=== PATIENT | male | born 1990 | race Caucasian/White ===

== ENCOUNTER 2020-10-07 12:49 | Emergency (ER) | payer OTHER ==
[~2020-10-07] VITALS: Ht 190.5 cm; Wt 79.4 kg
[2020-10-07 14:00] LABS: BASOPHILS % (AUTO) 0.5 % (0.0-2.0); HEMATOCRIT 39 % (39-51); HEMOGLOBIN 12.7 g/dL (13.5-17.5); LYMPHOCYTES # (AUTO) 1.8 /CMM (0.8-4.8); LYMPHOCYTES % (AUTO) 23.2 % (20.0-44.0); MEAN CORPUSCULAR HGB CONC 32 g/dl (31.0-36.0); MEAN CORPUSCULAR VOLUME 90 fL (80-96); MONOCYTES # (AUTO) 0.6 /CMM (0.1-1.30); MONOCYTES % (AUTO) 7.6 % (2.0-12.0); NEUTROPHILS # (AUTO) 5.3 /CMM (1.8-8.9); NEUTROPHILS % (AUTO) 67.7 % (43.0-81.0); PLATELET COUNT (AUTO) 351 /CMM (150-450); RED BLOOD CELL COUNT(AUTO) 4.37 MIL/uL (4.5-6.0); WHITE BLOOD COUNT (AUTO) 7.8 K/uL (4.3-11.0)
[2020-10-07 14:13] LABS: CALCIUM, SERUM 9.1 mg/dL (8.5-10.1); CARBON DIOXIDE 32 mmol/L (21-32); CHLORIDE 104 mmol/L (98-107); CREATININE 0.8 mg/dL (0.6-1.3); GLUCOSE 89 mg/dL (74-106); POTASSIUM 4.3 mmol/L (3.5-5.1); SODIUM SERUM 142 mmol/L (136-145); UREA NITROGEN, BLOOD 12 mg/dL (7-18)
[2020-10-07 14:14] LABS: BILIRUBIN,URINE NEGATIVE (NEGATIVE); COLOR,URINE DARK YELLOW (YELLOW); LEUKOCYTE ESTERASE ,URINE NEGATIVE (NEGATIVE); NITRITE, URINE NEGATIVE (NEGATIVE); PH,URINE 8.5 (5.0-8.0); PROTEIN,URINE NEGATIVE (NEGATIVE); UGLUCOSE NEGATIVE (NEGATIVE)
--- NOTE | 2020-10-07 14:14 | NUR ---
rapid covid swab done and sent to lab
[2020-10-07 14:24] LABS: BACTERIA,URINE Rare /HPF (None Seen); RBC,URINE NONE SEEN /HPF (0-2); SQUAMOUS EPITHELIAL CELL,UR Rare /HPF (None Seen); WBC,URINE 0-2 /HPF (0-3)
[2020-10-07 14:27] LABS: ALANINE AMINOTRANSFERASE 46 U/L (12-78); ALBUMIN 3.2 g/dL (3.4-5.0); ALCOHOL, BLOOD < 3 mg/dL (0-0); ALKALINE PHOSPHATASE 64 U/L (46-116); ASPARTATE AMINOTRANSFERASE 28 U/L (15-37); BILIRUBIN,DIRECT 0.1 mg/dL (0.0-0.2); BILIRUBIN,TOTAL 0.2 mg/dL (0.2-1.0); TOTAL PROTEIN, SERUM 7.2 g/dL (6.4-8.2)
--- NOTE | 2020-10-07 19:27 | NUR ---
CLINICAL ADN FACESHEET FAXED TO [facility] INTAKE FOR VOLUNTARY PSYCH ADMISSION.
--- NOTE | 2020-10-07 20:42 | NUR ---
Call from [facility] Intake. Pt accepted to [facility] [address]. # for repor [phone]
--- NOTE | 2020-10-07 20:54 | NUR ---
attempted to give nurse to nurse report and was told to call back in 30min.
--- NOTE | 2020-10-07 20:56 | NUR ---
[facility] called for transport. Trip# [id number]
--- NOTE | 2020-10-07 21:20 | NUR ---
[facility] ETA [id number]
--- NOTE | 2020-10-07 22:42 | NUR ---
REPORT GIVEN TO JENNA TSE FOR [facility]
--- NOTE | 2020-10-07 23:46 | NUR ---
CALLED [facility], TRANSPORT WILL BE DELAYED 25MIN.
[2020-10-08 00:51] VITALS: BP 135/82
--- NOTE | 2020-10-08 00:52 | NUR ---
report given to [facility] unit [address] for continuity of care. pt to be transferred to [facility] [place]. pt aware of transport. transfer packet given to [facility]. vss. per [facility] transport took over care.
== END 2020-10-08 00:56 ==
LOC: ER 12:57
DX: F99 Mental disorder, not otherwise specified (principal); R45.851 Suicidal ideations; Z20.822 Contact with and (suspected) exposure to COVID-19; F20.9 Schizophrenia, unspecified
CPT/HCPCS: 36415; 80048; 80076; 80299; 80307; 80320; 81001; 85025; 87426; 99285; C9803; G0480

== ENCOUNTER 2020-10-22 04:49 | Emergency (ER) | payer OTHER ==
[~2020-10-22] VITALS: Ht 190.5 cm; Wt 79.4 kg
--- NOTE | 2020-10-22 05:00 | NUR ---
TO ER BED C/O SI WITHOUT SPECIFIC PLAN, DEPRESSED X3 DAYS. REQUESTING VOLUNTARY PSYCH ADMISSION TO [place] . PT AAOX4 NO ACUTE DISTRESS NOTED, RESP EVEN AND UNLABORED. PT CALM AND COOPERATIVE AT THIS TIME. PENDING ER MD RUVALCABA.
--- NOTE | 2020-10-22 05:06 | NUR ---
URINE SAMPLE COLLECTED AND SENT TO LAB.
[2020-10-22 05:34] LABS: BILIRUBIN,URINE SMALL (NEGATIVE); COLOR,URINE YELLOW (YELLOW); LEUKOCYTE ESTERASE ,URINE NEGATIVE (NEGATIVE); NITRITE, URINE NEGATIVE (NEGATIVE); PH,URINE 6.5 (5.0-8.0); PROTEIN,URINE NEGATIVE (NEGATIVE); UGLUCOSE NEGATIVE (NEGATIVE); UROBILINOGEN,URINE 0.2 EU/dL (0.2)
[2020-10-22 05:35] LABS: BASOPHILS % (AUTO) 0.8 % (0.0-2.0); EOSINOPHILS % (AUTO) 3.1 % (0.0-6.0); HEMATOCRIT 39 % (39-51); HEMOGLOBIN 12.7 g/dL (13.5-17.5); LYMPHOCYTES # (AUTO) 1.8 /CMM (0.8-4.8); MEAN CORPUSCULAR HGB CONC 33 g/dl (31.0-36.0); MEAN CORPUSCULAR VOLUME 91 fL (80-96); MONOCYTES # (AUTO) 0.5 /CMM (0.1-1.30); MONOCYTES % (AUTO) 11.4 % (2.0-12.0); NEUTROPHILS # (AUTO) 2.3 /CMM (1.8-8.9); NEUTROPHILS % (AUTO) 47.7 % (43.0-81.0); PLATELET COUNT (AUTO) 353 /CMM (150-450); WHITE BLOOD COUNT (AUTO) 4.8 K/uL (4.3-11.0)
[2020-10-22 05:50] LABS: ALANINE AMINOTRANSFERASE 311 U/L (12-78); ALBUMIN 4.2 g/dL (3.4-5.0); ALCOHOL, BLOOD < 3 mg/dL (0-0); ALKALINE PHOSPHATASE 78 U/L (46-116); ASPARTATE AMINOTRANSFERASE 228 U/L (15-37); BILIRUBIN,DIRECT 0.2 mg/dL (0.0-0.2); BILIRUBIN,TOTAL 0.5 mg/dL (0.2-1.0); CALCIUM, SERUM 9.7 mg/dL (8.5-10.1); CARBON DIOXIDE 29 mmol/L (21-32); CHLORIDE 104 mmol/L (98-107); CREATININE 0.9 mg/dL (0.6-1.3); GLUCOSE 90 mg/dL (74-106); POTASSIUM 3.7 mmol/L (3.5-5.1); SODIUM SERUM 142 mmol/L (136-145); UREA NITROGEN, BLOOD 21 mg/dL (7-18)
[2020-10-22 05:51] LABS: ACETAMINOPHEN < 2 ug/ml (10-30)
--- NOTE | 2020-10-22 05:58 | NUR ---
CLINICAL AND FACESHEET FAXED TO [facility] INTAKE FOR VOLUNTARY PSYCH ADMISSION.
--- NOTE | 2020-10-22 06:00 | NUR ---
NEGATIVE ANTIGEN COVID RESULT
--- NOTE | 2020-10-22 06:53 | NUR ---
Cheryl santos in EDM - 10/22/20 at 0654 by DEBORAH TRANSFER INFO: PT ACCEPTED AT [facility] PT WILL GO TO UNIT 2 PHONE NUMBER FOR REPORT . PLEASE CALL REPORT AFTER [phone]
--- NOTE | 2020-10-22 07:22 | NUR ---
Cheryl santos in ED - 10/22/20 at 0723 by STEPHEN RECIEVED A CALL BACK FROM [facility]. ETA 20-30 MINUTES WITH [facility].
--- NOTE | 2020-10-22 09:36 | NUR ---
RECIEVED A CALL FROM RAUDEL MEYERS. WANTS US TO GIVE REPORT TO [facility] [phone].
--- NOTE | 2020-10-22 09:40 | NUR ---
REPORT GIVEN TO DEDRICK LUCAS FOR [facility].
--- NOTE | 2020-10-22 09:51 | NUR ---
CALLED [facility]SPORT. GAVE THEM AN ETA REQUEST OF 1100. TRIP NUMBER. [id number]
[2020-10-22 10:37] VITALS: BP 129/78
--- NOTE | 2020-10-22 10:37 | NUR ---
TERRA Note: SW attempted to meet with pt to complete homeless discharged. However, pt. may have eloped. . SW placed homeless waiver & homeless packet in pt.'s chart. SW will be available as needed
--- NOTE | 2020-10-22 11:35 | NUR ---
Patient eloped from facility. ER MD notified.
== END 2020-10-22 11:42 | disposition left against medical advice (07) ==
LOC: ER 04:49
DX: R45.851 Suicidal ideations (principal); Z20.822 Contact with and (suspected) exposure to COVID-19; F20.9 Schizophrenia, unspecified
CPT/HCPCS: 36415; 80048; 80076; 80299; 80307; 80320; 81003; 85025; 87426; 99285; C9803; G0480

== ENCOUNTER 2020-11-12 14:15 | Emergency (ER) | payer OTHER ==
[~2020-11-12] VITALS: Ht 190.5 cm; Wt 79.4 kg
--- NOTE | 2020-11-12 14:32 | NUR ---
PT SELF PRESENTS TO ED REQUESTING VOLUNTARY PSYCH ADMISSION. STATES WENT TO [facility] AND WAS SENT HERE TO GET MEDICAL CLEARANCE PRIOR TO VOLUNTARY PSYCH ADMIT. PT STATES BEEN DEPRESSED AND SUICIDAL FOR A FEW DAYS. 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 STABLE VITALS. AWAITING MD RUVALCABA.
--- NOTE | 2020-11-12 14:39 | NUR ---
DR ENGLE AT BEDSIDE FOR EVAL.
--- NOTE | 2020-11-12 14:57 | NUR ---
DIGITAL PRODUCTION OPERATOR AT BEDSIDE FOR BLOOD DRAW.
[2020-11-12 15:06] LABS: BASOPHILS % (AUTO) 0.7 % (0.0-2.0); HEMATOCRIT 41 % (39-51); HEMOGLOBIN 13.4 g/dL (13.5-17.5); LYMPHOCYTES # (AUTO) 1.6 /CMM (0.8-4.8); LYMPHOCYTES % (AUTO) 22.8 % (20.0-44.0); MEAN CORPUSCULAR HGB CONC 33 g/dl (31.0-36.0); MEAN CORPUSCULAR VOLUME 93 fL (80-96); MONOCYTES # (AUTO) 0.4 /CMM (0.1-1.30); MONOCYTES % (AUTO) 5.5 % (2.0-12.0); NEUTROPHILS # (AUTO) 4.5 /CMM (1.8-8.9); PLATELET COUNT (AUTO) 261 /CMM (150-450); WHITE BLOOD COUNT (AUTO) 6.9 K/uL (4.3-11.0)
[2020-11-12 15:09] LABS: BILIRUBIN,URINE SMALL (NEGATIVE); COLOR,URINE YELLOW (YELLOW); LEUKOCYTE ESTERASE ,URINE Negative (NEGATIVE); NITRITE, URINE Negative (NEGATIVE); PH,URINE 5.5 (5.0-8.0); PROTEIN,URINE Negative (NEGATIVE); UGLUCOSE Negative (NEGATIVE)
[2020-11-12 15:16] LABS: CARBON DIOXIDE 33 mmol/L (21-32); CHLORIDE 103 mmol/L (98-107); CREATININE 0.8 mg/dL (0.6-1.3); GLUCOSE 101 mg/dL (74-106); POTASSIUM 4.2 mmol/L (3.5-5.1); SODIUM SERUM 141 mmol/L (136-145); UREA NITROGEN, BLOOD 12 mg/dL (7-18)
[2020-11-12 15:22] LABS: ALANINE AMINOTRANSFERASE 82 U/L (12-78); ALBUMIN 3.8 g/dL (3.4-5.0); ALCOHOL, BLOOD < 3 mg/dL (0-0); ALKALINE PHOSPHATASE 75 U/L (46-116); ASPARTATE AMINOTRANSFERASE 47 U/L (15-37); BILIRUBIN,DIRECT 0.1 mg/dL (0.0-0.2); BILIRUBIN,TOTAL 0.4 mg/dL (0.2-1.0); TOTAL PROTEIN, SERUM 7.9 g/dL (6.4-8.2)
[2020-11-12 15:27] LABS: ACETAMINOPHEN < 0 ug/ml (10-30)
[2020-11-12 16:12] LABS: BACTERIA,URINE Rare /HPF (None Seen); RBC,URINE NONE SEEN /HPF (0-2); WBC,URINE NONE SEEN /HPF (0-3)
[2020-11-12 16:13] LABS: SQUAMOUS EPITHELIAL CELL,UR Few /HPF (None Seen)
[2020-11-12 16:40] LABS: CALCIUM, SERUM 9.3 mg/dL (8.5-10.1)
--- NOTE | 2020-11-12 17:56 | NUR ---
RECIEVED A CALL FROM [facility], PATIENT ACCEPTED TO [facility] UNDER THE CARE OF DR. GUSTAFSON, NUMBER FOR REPORT [phone].
--- NOTE | 2020-11-12 18:07 | NUR ---
REPORT GIVEN TO GUILLERMO MAYBERRY. AWAITING TRANSFER TO COUNT INCLUDES THE [facility].
--- NOTE | 2020-11-12 18:08 | NUR ---
CALLED [facility] FOR TRANSPORT TO [facility]. ETA 45 MINUTES.
[2020-11-12 19:09] VITALS: BP 122/78
== END 2020-11-12 19:11 ==
LOC: ER 14:21
DX: F99 Mental disorder, not otherwise specified (principal); R45.851 Suicidal ideations; Z20.822 Contact with and (suspected) exposure to COVID-19; R79.89 Other specified abnormal findings of blood chemistry; R78.4 Finding of other drugs of addictive potential in blood
CPT/HCPCS: 36415; 80048; 80076; 80299; 80307; 80320; 81001; 85025; 87426; 99285; C9803; G0480

== ENCOUNTER 2020-12-07 10:05 | Emergency (ER) | payer OTHER ==
[~2020-12-07] VITALS: Ht 198.1 cm; Wt 67.1 kg
[2020-12-07 10:13] VITALS: BP 108/67
--- NOTE | 2020-12-07 10:18 | NUR ---
med refill - off meds for 2 days
--- NOTE | 2020-12-07 10:19 | NUR ---
the patient admits to homelessness; however, he refused assisted placement or social science manager assessment. The patient states he is fine living in [address] now and he has a job.
[2020-12-07] MEDS ORDERED: CLON1TAB PO (10:21)
[2020-12-07] MEDS ORDERED: FLUO20CA36 PO (10:21)
[2020-12-07] MEDS ORDERED: QUET400T5 PO (10:21)
[2020-12-07] MEDS ORDERED: FLUO40CA8 PO (10:21)
--- NOTE | 2020-12-07 10:27 | NUR ---
Note tom in EDM - 12/07/20 at 1027 by RHYS Patient does not wish to proceed with medical care recommended by ( ). Patient given information related to possible complications, up to and including , which could occur as a result of leaving the hospital at this time. Patient verbalizes understanding of risks involved due to leaving against medical advice. Patient has signed AMA form.
--- NOTE | 2020-12-07 10:27 | NUR ---
Patient given written and verbal discharge instructions. Patient verbalizes understanding of instructions. Patient is ambulatory with steady gait. Refuses offer of senior care placement. Patient given list of available shelters in surrounding area.
[2020-12-08] MEDS ORDERED: QUET400T5 PO (08:55)
[2020-12-08] MEDS ORDERED: FLUO40CA8 PO (08:55)
== END 2020-12-07 10:30 | disposition home or self-care (01) ==
LOC: ER 10:05
DX: Z76.0 Encounter for issue of repeat prescription (principal); F20.9 Schizophrenia, unspecified; F17.200 Nicotine dependence, unspecified, uncomplicated; Z88.0 Allergy status to penicillin; Z60.2 Problems related to living alone; Z79.899 Other long term (current) drug therapy

== ENCOUNTER 2020-12-08 08:05 | Emergency (ER) | payer OTHER ==
[~2020-12-08] VITALS: Ht 195.6 cm; Wt 68.0 kg
[~2020-12-08 08:05] MED LIST: CLON1TAB PO; FLUO20CA36 PO; FLUO40CA8 PO; QUET400T5 PO
--- NOTE | 2020-12-08 08:20 | NUR ---
BIB SELF FOR MED REFILL OF SEROQUEL 400MG,KLONOPIN 1MG,PROZAC 60MG, SYBOXONE 8 MG, PRAZOZIN 3 MG, AND NEURONTIN 800 MG. THE PATIENT IS ALERT AND ORIENTED X4. DENIES SI/HI. DENIES PAIN. IN ROOM AIR AND DENIES SOB. RESPIRATION REGULAR AND UNLABORED. WILL CONTINUE TO MONITOR THE PATIENT.
[2020-12-08 08:25] VITALS: BP 123/59
[2020-12-08] MEDS ORDERED: FLUO40CA8 PO (08:55)
[2020-12-08] MEDS ORDERED: QUET400T5 PO (08:55)
--- NOTE | 2020-12-08 09:05 | NUR ---
Patient given written and verbal discharge instructions. Patient verbalizes understanding of instructions. Patient is ambulatory with steady gait. Refuses offer of detention placement. Patient given list of available shelters in surrounding area.
== END 2020-12-08 09:07 | disposition home or self-care (01) ==
LOC: ER 08:06
DX: Z76.0 Encounter for issue of repeat prescription (principal); F20.9 Schizophrenia, unspecified; F17.200 Nicotine dependence, unspecified, uncomplicated; Z88.0 Allergy status to penicillin; Z60.2 Problems related to living alone; Z79.899 Other long term (current) drug therapy